=== PATIENT | male | born 1990 | race Caucasian/White ===

== ENCOUNTER 2017-01-11 19:34 | Emergency (ER) | payer OTHER ==
[~2017-01-11] VITALS: Ht 185.4 cm; Wt 90.7 kg
[2017-01-11] MEDS ORDERED: NO MEDICATIONS (20:05)
== END 2017-01-11 21:33 | disposition home or self-care (01) ==
LOC: SED 19:34
DX: J02.9 Acute pharyngitis, unspecified (principal)
CPT/HCPCS: 87651; 99283